=== PATIENT | male | born 1940 | race Asian ===

== ENCOUNTER → 2016-11-22 | Outpatient (CLI) | payer OTHER ==
[~2016-11-22] MED LIST: AMIO200T PO; AMLO5TAB66 PO; ASPI-556 PO; ATOR20TA86 PO; CA C1TAB73 PO; FURO20 PO; ISOS60TA4 PO; LEVO75 PO; LEVO88TA4 PO; METO50TA5 PO; PANT40TA25 PO; POTA10CA44 PO; VALS160T2 PO
== END | disposition home or self-care (01) ==
LOC: RADPV 09:40
PROVIDERS: ATTEND Internal Medicine
DX: S82.831D Other fracture of upper and lower end of right fibula, subsequent encounter for closed fracture with routine healing (principal); S82.54XD Nondisplaced fracture of medial malleolus of right tibia, subsequent encounter for closed fracture with routine healing; M79.89 Other specified soft tissue disorders; M85.871 Other specified disorders of bone density and structure, right ankle and foot; Z87.828 Personal history of other (healed) physical injury and trauma; X58.XXXD Exposure to other specified factors, subsequent encounter